=== PATIENT | male | born 2000 | race African-American/Black ===

== ENCOUNTER 2022-04-06 15:13 | Emergency (ER) | payer OTHER ==
[~2022-04-06] VITALS: Ht 165.1 cm; Wt 78.2 kg
[2022-04-06] MEDS ORDERED: IBUPROFEN 600MG TAB PO ONE (16:20)
[2022-04-06 16:37] VITALS: BP 130/70
== END 2022-04-06 16:40 | disposition home or self-care (01) ==
LOC: M ED 15:13
DX: S93.401A Sprain of unspecified ligament of right ankle, initial encounter (principal); X50.0XXA Overexertion from strenuous movement or load, initial encounter; Y93.02 Activity, running; Y99.1 Military activity

== ENCOUNTER 2022-04-13 11:35 | Emergency (ER) | payer OTHER ==
[~2022-04-13] VITALS: Ht 167.6 cm; Wt 77.4 kg
[2022-04-13 11:36] VITALS: BP 131/66
== END 2022-04-13 12:42 | disposition left against medical advice (07) ==
LOC: M ED 11:35
DX: Z53.21 Procedure and treatment not carried out due to patient leaving prior to being seen by health care provider (principal)